=== PATIENT | male | born 1940 | race Caucasian/White ===

== ENCOUNTER → 2018-01-15 | Outpatient (CLI) | payer MEDICARE ==
--- NOTE | 2018-01-15 09:23 | MR ---
MR lumbar spine wo con Other spondylosis, lumbosacral region, back pain Multiplanar, multiecho imaging of the lumbar spine was obtained without contrast on a 3 Anjelica magnet. REFERENCE: Previous study dated 01/10/2015. FINDINGS: Paraspinal soft tissues are normal. There is a moderate levoscoliosis. There is mild wedging of the L2 vertebral body. This is an interva l development but is not acute. This hypertrophic spondylosis anteriorly at L1-2 and L2-3. There is a lso hypertrophic spondylosis present posteriorly at L2-3. Cord signal is maintained. The conus ends normally at the level of superior endplate of L1. At T12-L1, there is minimal capsulitis within the facets. At L1-2, there is disc space loss and disc desiccation. There is a mild, bilobed disc displacement mi ldly deforming the thecal sac. Intervertebral foramina are maintained. There is hypertrophic change a nd capsulitis within the facets. At L2-3, there has been mild, interval wedging of the L2 vertebral body. This hypertrophic spondylosi s both anteriorly and posteriorly. There is bilateral intervertebral foraminal narrowing, worse on th e right left. There is a mixed spondylitic protrusion present posteriorly. This is effacing and mildl y deforming the thecal sac. There is hypertrophic change and capsulitis within the facets. At L3-4, there is disc space loss and disc desiccation. Intervertebral foramina are reasonably well-m aintained. There is a diffuse disc displacement. This hypertrophic change and capsulitis in the facet s. There is mild trefoiling of the thecal sac. At L4-5, there is disc space loss and disc desiccation. There is left-sided intervertebral foraminal narrowing and lateral recess stenosis. This hypertrophic change in the facets. There is mild trefoili ng of the thecal sac. At L5-S1, there is a miniscule central disc protrusion. There is mild, left-sided intervertebral fora ben narrowing. There is moderate facet arthropathy. IMPRESSION: 1. DIFFUSE DEGENERATIVE DISC DISEASE AND FACET ARTHROPATHY. 2. MILD, INTERVAL WEDGING OF THE L2 VERTEBRAL BODY. 3. MULTILEVEL INTERVERTEBRAL FORAMINAL NARROWING. 4. BROAD-BASED MIXED SPONDYLITIC PROTRUSION, L2-3. 5. LEFT-SIDED LATERAL RECESS STENOSIS, L4-5.
== END | disposition home or self-care (01) ==
LOC: RADMRIMAIN 08:33
PROVIDERS: ATTEND Internal Medicine
DX: M48.061 Spinal stenosis, lumbar region without neurogenic claudication (principal); M99.73 Connective tissue and disc stenosis of intervertebral foramina of lumbar region; M51.26 Other intervertebral disc displacement, lumbar region; M51.36 Other intervertebral disc degeneration, lumbar region; M46.86 Other specified inflammatory spondylopathies, lumbar region
CPT/HCPCS: 72148

== ENCOUNTER → 2018-03-03 | Outpatient (CLI) | payer MEDICARE ==
[2018-03-03 10:51] LABS: Appearance,Urine Clear (Clear); Bilirubin,Urine Negative (Negative); Blood,Urine Negative (Negative); Color,Urine Yellow; Glucose,Urine (UA) Negative (Negative); Ketones,Urine Negative (Negative); Leukocyte Esterase,Urine Negative (Negative); Nitrite,Urine Negative (Negative); Protein,Urine Negative (Negative); Specific Gravity,Urine 1.016 (1.001-1.035); Urobilinogen,Urine <2.0 mg/dL (<2.0)
[2018-03-03 10:53] LABS: Basophils % (A) 1 %; Eosinophils # (A) 0.2 k/uL (0-0.7); Eosinophils % (A) 3 %; HCT 41.5 % (39.0-53.0); HGB 14.4 gm/dL (13.0-17.5); Lymphocytes # (A) 1.9 k/uL (1.0-4.8); Lymphocytes % (A) 31 %; MCH 31.5 pg (25.0-35.0); MCHC 34.8 g/dL (31.0-37.0); MCV 90.3 fL (80.0-100.0); Mean Platelet Volume 7.4; Monocytes # (A) 0.5 k/uL (0-1.0); Monocytes % (A) 8 %; Neutrophils # (A) 3.3 k/uL (1.3-7.7); Neutrophils % (A) 54 %; Platelet Count 241 k/uL (150-450); RBC 4.59 m/uL (4.30-5.90); RDW 13.5 % (11.5-15.5); WBC 6.2 k/uL (3.8-10.6)
[2018-03-03 11:05] LABS: Partial Thromboplastin Time 24.1 sec (22.0-30.0); Prothrombin Time 10.2 sec (9.0-12.0)
[2018-03-03 11:12] LABS: Albumin 4.5 g/dL (3.5-5.0); Calcium 9.9 mg/dL (8.4-10.2); Potassium 4.3 mmol/L (3.5-5.1); Total Bilirubin 0.7 mg/dL (0.2-1.3); Total Protein 7.4 g/dL (6.3-8.2)
== END | disposition home or self-care (01) ==
LOC: LABWHC1 09:35
DX: Z01.812 Encounter for preprocedural laboratory examination (principal); M48.061 Spinal stenosis, lumbar region without neurogenic claudication; Z79.01 Long term (current) use of anticoagulants
CPT/HCPCS: 36415; 80053; 81003; 85025; 85610; 85730

== ENCOUNTER → 2018-03-30 | Outpatient (CLI) | payer MEDICARE ==
--- NOTE | 2018-03-30 07:19 | XR ---
EXAMINATION TYPE: XR lumbar spine 2 or 3V DATE OF EXAM: 03/30/2018 COMPARISON: MRI 01/15/2018 HISTORY: 77-year-old male follow-up after laminectomy TECHNIQUE: 3 views FINDINGS: 5 lumbar type vertebral bodies. Lower lumbar laminectomy with placement of posterior fusion device pl aced along the spinous processes and lamina of L4-L5. Hypertrophic facet arthropathy is present throu ghout with moderate multilevel disc/endplate degenerative change. Trace grade 1 retrolisthesis at L4- L5 and L2-L3. Vertebral body heights are maintained. There is scattered calcifications within the abd ominal aorta. IMPRESSION: New surgical hardware along the posterior elements of L4-L5. Stable trace grade 1 retrolisthesis at L 2-L3 and L4-L5. Moderate multilevel disc/endplate degenerative change and hypertrophic facet arthropa thy throughout.
== END | disposition home or self-care (01) ==
LOC: RADXRMAIN 06:48
DX: M43.16 Spondylolisthesis, lumbar region (principal); M47.816 Spondylosis without myelopathy or radiculopathy, lumbar region; M46.96 Unspecified inflammatory spondylopathy, lumbar region; Z98.890 Other specified postprocedural states
CPT/HCPCS: 72100

== ENCOUNTER → 2018-08-12 | Outpatient (CLI) | payer MEDICARE ==
--- NOTE | 2018-08-12 15:44 | US ---
EXAMINATION TYPE: US kidneys/renal and bladder DATE OF EXAM: 08/12/2018 COMPARISON: CT 2013, US 2011 CLINICAL HISTORY: N18.3 CHR KIDNEY DISEASE. CKD stage 3 EXAM MEASUREMENTS: Right Kidney: 10.3 x 5.1 x 4.5 cm Left Kidney: 10.3 x 5.5 x 6.0 cm Right Kidney: multiple cystic areas with largest mid pole measuring 2.2cm Left Kidney: multiple cystic areas with largest inferior pole measuring 2.0cm Bilateral renal cysts are increasing in size from 2012. Bladder: wnl Bilateral Jets seen: yes IMPRESSION: 1. Simple renal cysts.
== END | disposition home or self-care (01) ==
LOC: RADUSWWP 14:29
PROVIDERS: ATTEND Internal Medicine
DX: N28.1 Cyst of kidney, acquired (principal); N18.3 Chronic kidney disease, stage 3 (moderate)
CPT/HCPCS: 76770

== ENCOUNTER 2019-12-19 09:58 | Observation (INO) | payer MEDICARE ==
[2019-12-20 14:07] VITALS: BMI 26.1
[2019-12-21 04:58] VITALS: BP 127/64; PULSE 66; RESP 17; TEMP 98.3
== END 2019-12-21 11:39 | disposition home or self-care (01) ==
LOC: EC 09:58 → 5NMEDONC 12:57 → UNDOADMIN 12:57 → INTOOBSV 12:57 → 5NMEDONC 13:46 → UNDODISIN 12-21 11:39
PROVIDERS: ADMIT Internal Medicine; ATTEND Internal Medicine
DX: N17.9 Acute kidney failure, unspecified (principal); N39.0 Urinary tract infection, site not specified; I48.20 Chronic atrial fibrillation, unspecified; E87.1 Hypo-osmolality and hyponatremia; E87.2 Acidosis; N40.0 Benign prostatic hyperplasia without lower urinary tract symptoms; M10.9 Gout, unspecified; T36.8X5A Adverse effect of other systemic antibiotics, initial encounter; T50.2X5A Adverse effect of carbonic-anhydrase inhibitors, benzothiadiazides and other diuretics, initial encounter; I12.9 Hypertensive chronic kidney disease with stage 1 through stage 4 chronic kidney disease, or unspecified chronic kidney disease; E86.1 Hypovolemia; N18.9 Chronic kidney disease, unspecified; R19.7 Diarrhea, unspecified; G89.29 Other chronic pain; M54.9 Dorsalgia, unspecified; M54.2 Cervicalgia; I44.0 Atrioventricular block, first degree; Z91.013 Allergy to seafood; Z97.0 Presence of artificial eye; Z82.49 Family history of ischemic heart disease and other diseases of the circulatory system; Z87.891 Personal history of nicotine dependence; Z81.8 Family history of other mental and behavioral disorders; Z90.49 Acquired absence of other specified parts of digestive tract; Z90.89 Acquired absence of other organs; Z98.890 Other specified postprocedural states; Z87.442 Personal history of urinary calculi; Z79.899 Other long term (current) drug therapy
CPT/HCPCS: 96361 ×4; 96365; 96372 ×2; 96376; 96374; 99285; 51702; 36415; 93005; 80053; 80048 ×2; 83735; 85025; 81001; 87040; 87086; 76770; G0378 ×3; J1644 ×2; J0696 ×3; 99284

== ENCOUNTER 2021-12-19 10:53 | Emergency (ER) | payer MEDICARE ==
[2021-12-19] MEDS ORDERED: SODIUM CHLORIDE 0.9% 500 ML 500 ML IV STA (11:17)
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
--- NOTE | 2021-12-19 11:42 | XR ---
EXAMINATION TYPE: XR chest 2V DATE OF EXAM: 12/19/2021 COMPARISON: Chest x-ray May 02, 2014 HISTORY: Dysrhythmia. TECHNIQUE: Frontal and lateral views of the chest are obtained. FINDINGS: Improved inspiration current study. There is no suspicious focal air space opacity, pleural effusion, or pneumothorax seen. The cardiac silhouette size is now within normal limits with athero sclerotic change aortic knob redemonstrated. The osseous structures are intact. IMPRESSION: No acute process currently.
[2021-12-19 11:47] LABS: INR 0.9 (<1.2); Partial Thromboplastin Time 24.1 sec (22.0-30.0); Prothrombin Time 10.1 sec (9.0-12.0)
[2021-12-19 11:55] LABS: Basophils # (A) 0.1 k/uL (0-0.2); Basophils % (A) 1 %; Eosinophils # (A) 0.1 k/uL (0-0.7); Eosinophils % (A) 2 %; HCT 46.1 % (39.0-53.0); HGB 15.2 gm/dL (13.0-17.5); Lymphocytes # (A) 1.4 k/uL (1.0-4.8); Lymphocytes % (A) 25 %; MCH 31.7 pg (25.0-35.0); Mean Platelet Volume 7.7; Monocytes # (A) 0.5 k/uL (0-1.0); Monocytes % (A) 8 %; Neutrophils # (A) 3.5 k/uL (1.3-7.7); Neutrophils % (A) 60 %; Platelet Count 182 k/uL (150-450); RDW 13.4 % (11.5-15.5); WBC 5.9 k/uL (3.8-10.6)
[2021-12-19 12:02] LABS: Albumin 4.9 g/dL (3.5-5.0); Calcium 9.7 mg/dL (8.4-10.2); Potassium 4.2 mmol/L (3.5-5.1); Total Bilirubin 0.8 mg/dL (0.2-1.3); Total Protein 8.3 g/dL (6.3-8.2)
[2021-12-19 12:53] VITALS: BP 130/86; PULSE 77; RESP 18; TEMP 97.8
== END 2021-12-19 12:52 | disposition home or self-care (01) ==
LOC: EC 10:53
DX: R00.2 Palpitations (principal); I48.91 Unspecified atrial fibrillation; I10 Essential (primary) hypertension; Z87.891 Personal history of nicotine dependence; Z72.89 Other problems related to lifestyle
CPT/HCPCS: 36415; 71046; 80053; 83735; 84484; 85025; 85610; 85730; 93005; 99285

== ENCOUNTER → 2022-03-16 | Outpatient (CLI) | payer MEDICARE ==
--- NOTE | 2022-03-16 09:08 | XR ---
EXAMINATION TYPE: XR knee limited LT DATE OF EXAM: 03/16/2022 CLINICAL HISTORY: pain TECHNIQUE: Two views of the left knee are obtained. COMPARISON: None. FINDINGS: There is no acute fracture/dislocation. The tri-compartment joint spaces appear within no rmal limits. The overlying soft tissue appears unremarkable. Small subtalar joint effusion. IMPRESSION: There is no acute fracture or dislocation ICD 10 NO FRACTURE, INITIAL EVALUATION
== END | disposition home or self-care (01) ==
LOC: RADXRMAIN 08:19
PROVIDERS: ATTEND Internal Medicine
DX: M25.562 Pain in left knee (principal)

== ENCOUNTER → 2023-12-07 | Outpatient (CLI) | payer MEDICARE ==
--- NOTE | 2023-12-08 22:37 | MR ---
EXAMINATION TYPE: MR lumbar spine wo/w con DATE OF EXAM: 12/07/2023 1:55 PM CLINICAL INDICATION:Male, 83 years old with history of M17.816 spondylosis of lumbar region; PHH, Low back pain into buttocks and left leg COMPARISON: None TECHNIQUE: Multi planar, multi sequence imaging was performed utilizing: T1-weighted, T2-weighted, a nd turbo inversion recovery imaging of the lumbar spine. IV Contrast: 7 cc Gadavist. (None if empty) FINDINGS: Alignment: The lumbar vertebral bodies have preserved heights and alignment. Cord: The conus medullaris and the distal spinal cord appear unremarkable with regards to their signa l intensity and morphology. Bones/Discs: Multilevel disc degeneration changes with osteophyte formation, disc space narrowing, Sc hmorl's nodes, and facet joint arthropathy. Reactive bony edema along the adjoining endplates of L2 o n L3 and L4 and L5 on inversion recovery sequences.. Multilevel disc desiccation is present. There is susceptibility artifact at the posterior elements of L4 and L5 with present. Scattered areas of high T1 signal drops out of signal on fat saturation sequences compatible with focal fatty bone marrow. T12-L1: No evidence of significant spinal canal stenosis or neural foraminal stenosis. L1-L2: Disc bulge and facet joint arthropathy result in mild spinal canal and moderate to severe bila teral neural foraminal stenosis. L2-L3: Disc bulge and facet joint arthropathy result in mild spinal canal and severe right and modera te left neural foraminal stenosis. L3-L4: Disc bulge and facet joint arthropathy result in mild spinal canal and moderate bilateral neur al foraminal stenosis. L4-L5: Disc bulge and facet joint arthropathy result in mild spinal canal and severe left and moderat e right neural foraminal stenosis. L5-S1: The disc is rounded posterior morphology without significant spinal canal stenosis. Facet join t arthropathy with moderate bilateral neural foraminal stenosis. No significant spinal canal or neural foraminal stenosis in the remainder of the visualized levels. Other findings: None. IMPRESSION: 1. No definitive evidence of disc herniation or significant spinal canal stenosis. 2. Moderate to severe disc degeneration with associated osteoarthritic changes. Neural foraminal ally nosis worse at L4-L5 with severe left, L2-L3 with severe right no femoral stenosis.
== END | disposition home or self-care (01) ==
LOC: RADMRIMAIN 12:46
PROVIDERS: ATTEND Internal Medicine
DX: M47.816 Spondylosis without myelopathy or radiculopathy, lumbar region (principal); M51.36 Other intervertebral disc degeneration, lumbar region; M99.73 Connective tissue and disc stenosis of intervertebral foramina of lumbar region
CPT/HCPCS: 72158; A9585

== ENCOUNTER → 2023-12-27 | Outpatient (CLI) | payer MEDICARE ==
[2023-12-27 09:41] VITALS: BP 195/94; PULSE 98; RESP 15; TEMP 98.6
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
== END ==
LOC: PNWHC3 08:27
PROVIDERS: ATTEND Specialist
DX: M51.37 Other intervertebral disc degeneration, lumbosacral region (principal); M19.90 Unspecified osteoarthritis, unspecified site; I48.91 Unspecified atrial fibrillation; I10 Essential (primary) hypertension; N40.0 Benign prostatic hyperplasia without lower urinary tract symptoms; Z87.39 Personal history of other diseases of the musculoskeletal system and connective tissue; Z87.891 Personal history of nicotine dependence; Z79.899 Other long term (current) drug therapy
CPT/HCPCS: 99211

== ENCOUNTER 2024-01-04 09:17 | Day surgery (SDC) | payer MEDICARE ==
[~2024-01-04 09:17] MED LIST: LACTATED RINGERS 1,000 ML IV SCH
[2024-01-04] MEDS ORDERED: methylPREDNISolone ACETATE 40 MG/ML 1 ML VIAL ONE (10:03)
[2024-01-04] MEDS ORDERED: IOPAMIDOL M200 10 ML VIAL ONE (10:03)
[2024-01-04 10:06] VITALS: TEMP 97.5
--- NOTE | 2024-01-04 10:09 | P.PCN ---
Date of Procedure: 01/04/24 Description of Procedure: PREOPERATIVE DIAGNOSIS: lumbar radiculopathy POSTOPERATIVE DIAGNOSIS: Lumbar radiculopathy PROCEDURE 1. Lumbar epidural steroid injection under fluoroscopic guidance at the L5-S1 level. 2. Lumbar epidurogram. Imaging: Fluoroscopy was used, images where saved to the medical record ANESTHESIA: Local only EBL: Minimal PROCEDURE INDICATION: The patient with low back pain and radiculitis symptoms unresponsive to conservative treatment. Fluoroscopy was used to optimize visua lization of the needle placement and to maximize safety. PROCEDURE DESCRIPTION / TECHNIQUE: The patient was seen and identified in the preoperative area. Risks, benefits, complications including but not limited to infections, bleeding, allergic reaction to medications, nerve damage and incomplete pain relief, as well as alternatives to the procedure were discussed with the patient. The patient agreed to proceed with the procedure and signed the consent. IV was started if indicated above, and vital signs were stable. Patient was taken to the OR and time out was completed. The patient was placed in the prone position on procedure table and a pillow was placed under the abdomen to reduce lumbar lordosis. The lumbosacral area was prepped and draped in the usual sterile fashion. Vitals were closely monitored during the procedure. Using anterior-posterior fluoroscopy, the L5-S1 interlaminar space was identified and the skin over this site was marked and then infiltrated with 1% lidocaine subcutaneously. Subsequently, a 20-gauge Tuohy epidural needle was inserted and advanced toward the epidural space using the Loss of resistance technique and guided by AP and lateral fluoroscopy. The correct needle position in the epidural space was verified with the injection of 1 mL of Omnipaque 180 contrast to observe an acceptable epidurogram, after negative aspiration for blood and CSF and in the absence of paresthesias. Again after negative aspiration, a 3 ml mixture containing 40mg of depomedrol and 2 ml of preservative free Normal Saline was injected and a washout of epidurogram was seen. Needle was withdrawn intact, skin was cleansed, and bandages were applied. COMPLICATIONS: None DISPOSITION / PLANS: The patient was placed in a supine position and transferred to the recovery area in a stable condition for observation. There was no evidence of lower extremity motor or sensory deficit after the procedure. Patient was discharged from the recovery room after meeting discharge criteria. Home discharge instructions were given to the patient by the staff. The patient was reexamined prior to discharge. The patient will follow up as directed. Blood pressure is elevated advised to take medications at home as soon as he gets home and to follow-up with his primary care physician
--- NOTE | 2024-01-04 10:19 | FL ---
Fluoroscopy History: LESI 3 sec FL .[id number] DAP dose
[2024-01-04 10:35] VITALS: RESP 18
[2024-01-04 11:05] VITALS: BP 163/84; PULSE 64
== END 2024-01-04 10:32 | disposition home or self-care (01) ==
LOC: ORPAIN 09:17
PROVIDERS: ATTEND Hospitalist
DX: M54.16 Radiculopathy, lumbar region (principal); Z88.8 Allergy status to other drugs, medicaments and biological substances; Z79.899 Other long term (current) drug therapy
CPT/HCPCS: 62323; J1030; Q9966

== ENCOUNTER → 2024-02-10 | Outpatient (CLI) | payer MEDICARE ==
[2024-02-10 09:26] VITALS: BP 183/70; PULSE 58; RESP 16; TEMP 97.5
--- NOTE | 2024-02-10 12:50 | P.PAINPG ---
PQRS Measure Charge Sheet Comment: HISTORY OF PRESENT ILLNESS: A 83 yr old male w at side presents today w severe and chronic LBP x 40 yrs secondary to DDD, spondylosis and facet arthropathy without myelopathy for evaluation s/p YANCY L5-S1 #1. Pt states she experienced 60 % pain relief x 1 wks s/p procedure. Pt states pain level is provoked at 8 /10 in intensity, constant, localized in the lumbar spine, predominantly axial, pinching in character w occasional shooting pain towards the BL knees. Pain is provoked by bending. She cannot attend formal PT sessions due to provocation of intractable pain. Pain is alleviated by physician guided home stretching regimen 4-5 times weekly since Nov 2023, alternating heat & ice, medications, topical, repositioning and rest. Oswestry axial pain score at 33. Interventional procedures include YANCY L5-S1 x1 Medicatins include Tylenol #3 #60, Icy Hot REVIEW OF ORGAN SYSTEMS: CONSTITUTIONAL: No fevers or chills. No recent weight loss. NEUROLOGICAL: + numbness and tingling along the distal extremities. No seizure disorders or headaches. MUSCULOSKELETAL: + pain PSYCHIATRIC: Denies current depression or suicidal thoughts. Physical Examinations : Constitutional : Cooperative , not in acute distress . Neurologic : Cranial nerve II to XII intact. No focal neurological deficits. Psychiatric : alert & oriented x 3. Matching mood & appropriate affect. Judgment & insight intact. Musculoskeletal : Cervical Spine Motor strength in the deltoid and biceps: Normal right side. Normal Left side Motor strength biceps and the wrist extensors: Normal right side . Normal left side Motor strength in the triceps muscle: Normal right side. Normal left side Deep tendon reflexes: Normal at the biceps. Normal at Brachioradialis. Normal at triceps Vertebral body tenderness to deep palpation over Cervical facet loading test: positive bilaterally Spurling test: positive bilaterally Neck distraction test: positive bilaterally Kayode sign: positive bilaterally Lumbar spine Motor strength lower extremities ,thigh and legs 5/5 Right side , 5/5 Left side Deep tendon reflexes : Normal Knee Jerk. Normal Ankle Jerk Vertebral body tenderness Nieves Test positive Lumbar facet Loading Test: positive Right / positive Left L4-L5, L5-S1 Range of motion of the lumbar spine Flexion 30 degrees, extension 10 degrees Straight Leg Raise test: Left/ Right positive at degrees Marisela test: positive right / positive left. Severe tenderness over the Sacroiliac joint on the Right / Left sides Leon test: positive bilaterally Seated flexion test: positive bilaterally. Sacral spine : Severe tenderness over the Sacroiliac joint: right side / left side Range of motion: Flexion of the lumbar spine <60 degrees Range of motion: Extension of the lumbar spine <20 degrees Gaenslen's Test positive Marisela test: positive right side / left side Thigh Thrust Test Sacral Thrust Test Imaging: MRI with/ without contrast of the lumbar spine from 12/07/23 reviewed Assessment/ Plan : Lumbar DDD Recommendation of BL MBB L4-L5, l5-S1 #1. May need a series of injections, up until RFA, for optimal pain relief. Risks, benefits of procedure discussed and patient verbalized understanding. Admits to anti- coagulant use or medical history of diabetes. Protocol for discontinuation/ continuation of medications naga procedure discussed. Pt acknowledged understanding. Elevated BP. Urged pt to go downstairs to manage BP in ER short stay. Dangers of elevated BP discussed and pt verbalized understanding. All questions answered. I have spent greater than 30 minutes on patient care today. Dr Patel was available by phone for the evaluation of this patient. The time was used to review the medical records including relevant urine studies and Prescription history (MAPs), review of the available imaging, evaluation and examination of the patient, coordination of care with the medical staff and if applicable referring physicians, as well as creation of the medical record PQRS Narrative: Smoking Status Former smoker Hx Alcohol Use (MH) No Home Medications: Ambulatory Orders amLODIPine BESYLATE [Norvasc] 10 mg PO DAILY 04/30/14 Fish Oil/Dha/Epa [Fish Oil 1,200 mg Fish Oil] 3 cap PO DAILY 02/17/16 Propafenone [Rythmol] 150 mg PO BID@0800,1700 08/27/16 Latanoprost [Xalatan 0.005%] 1 drop LEFT EYE HS 12/19/19 Metoprolol Succinate (ER) [Toprol XL] 50 mg PO DAILY@1700 12/19/19 Baclofen [Lioresal] 10 mg PO BID PRN 12/19/21 Cholecalciferol [Vitamin D3 (125 Mcg = 5000 Iu)] 125 mcg PO DAILY 12/19/21 Losartan Potassium 100 mg PO DAILY 12/19/21 Acetaminophen-Codeine 300-30mg [Tylenol w/codeine #3] 1 tab PO BID PRN 30 Days #60 tablet 12/29/23 Controlled Substance Measures - Controlled Substance Measures Is patient prescribed a controlled substance at discharge?: No
== END ==
LOC: PNWHC3 08:42
PROVIDERS: ATTEND Specialist
DX: M51.37 Other intervertebral disc degeneration, lumbosacral region (principal); Z87.891 Personal history of nicotine dependence
CPT/HCPCS: 99211

== ENCOUNTER 2024-02-25 06:38 | Day surgery (SDC) | payer MEDICARE ==
[2024-02-25 07:11] VITALS: TEMP 98
[2024-02-25] MEDS: LACTATED RINGERS 1,000 ML IV SCH (07:25)
[2024-02-25] MEDS ORDERED: MIDAZOLAM 2 MG/2 ML VIAL ONE (08:07)
[2024-02-25] MEDS ORDERED: ROPIVACAINE 5MG/ML 20ML VIAL ONE (08:07)
[2024-02-25] MEDS ORDERED: fentaNYL (PF) 50 MCG/ML 2 ML AMP ONE (08:07)
[2024-02-25] MEDS: LACTATED RINGERS 1,000 ML IV ONE (08:36)
--- NOTE | 2024-02-25 08:43 | P.PCN ---
Description of Procedure: Preprocedure diagnosis. 1. Lumbar spondylosis with facet joint arthropathy without myelopathy. 2. Lumbar degenerative disc disease. Postprocedure diagnosis. As above. Procedure done. Bilateral diagnostic block with local anesthetics at L3, L4, L5 medial branch to target the facet joint L4- 5 and L5-S1 with fluoroscopic guidan ce (fluoroscopy images are available in the radiology department) . Anesthesia. As per anesthesia department/ Moderate sedation with intravenous Versed 2 mg and fentanyl and local infiltration with local anesthetics. In OR, continuous pulse ox, EKG, blood pressure and verbal communication was maintained. Blood loss. Minimal. Indication. The patient has low back pain secondary to lumbar facet joint arthropathy. Discussed the procedure and alternative and complications which includes infection, bleeding, nerve damage, paralysis ,aggravation of pain. Patient understands and all questions were answered. Patient iunderstands that if any pain relief occurs it will last for a few hours to a few days maximum. Procedure description. After getting consent patient was taken in the OR in pr one position. Back prepped with chlorhexidine and draped in sterile fashion. After injecting 5 mL of plain 1% lidocaine subcutaneously, a 22-gauge spinal needle was introduced under tunnel vision of the fluoroscope at the junction of the superior articular process with RIGHT ala of the sacrum. With slight oblique fluoroscope, after injecting 5 mL of plain 1% lidocaine subcutaneously, a 22-gauge spinal needle was introduced under tunnel vision of the fluoroscope at the junction of the superior articular process with RIGHT L5 transverse process, junction of the superior articular process with the RIGHT L4 transverse process. Negative CSF, negative blood, negative paresthesia. After needle position confirmation by AP and crosstable lateral view, after negative aspiration, half milliliters of solution were injected at each point. Total 1- 1/2 mL of solution was injected on the right side which consists of 0.5% ropivacaine. In exactly same way, LEFT sided injections were done at the [facility] 3 points. Junction of the superior articular process with left ala of the sacrum, junction of the superior articular process with the left L5 transverse process, junction of the superior articular process with left L4 transverse process using 0.5 mL of solution at each point. Total 1-1/2 mL of solution was injected on the left side which consists of 0.5% ropivacaine . Spinal needles were taken out and bandages were applied. Disposition. Patient tolerated the procedure well. No complication. Discharged home in stable condition
[2024-02-25 09:04] VITALS: BP 142/77; PULSE 53; RESP 19
--- NOTE | 2024-02-25 16:42 | FL ---
Fluoroscopy INDICATION: Pain FINDINGS: Fluoroscopy time: 59.2 seconds. Total dose area product (DAP) in uGy*m?, mGy*cm? (or similar): 0.27127 Images obtained: 5. IMPRESSION: 1. Documentation of fluoroscopy.
== END 2024-02-25 09:07 | disposition home or self-care (01) ==
LOC: ORPAIN 06:38
PROVIDERS: ATTEND Pain Medicine Interventional Pain Medicine
DX: M47.816 Spondylosis without myelopathy or radiculopathy, lumbar region (principal); M51.36 Other intervertebral disc degeneration, lumbar region; I10 Essential (primary) hypertension; I48.91 Unspecified atrial fibrillation; M10.9 Gout, unspecified; N40.0 Benign prostatic hyperplasia without lower urinary tract symptoms; Z79.899 Other long term (current) drug therapy
CPT/HCPCS: 64493; 64494 ×2; J2250; J3010; J2795

== ENCOUNTER → 2024-03-15 | Outpatient (CLI) | payer MEDICARE ==
[2024-03-15 10:33] VITALS: BP 177/81; PULSE 70; RESP 16; TEMP 97.7
--- NOTE | 2024-03-15 14:53 | P.PAINPG ---
PQRS Measure Charge Sheet Comment: HISTORY OF PRESENT ILLNESS: A 83 yr old male w at side presents today w severe and chronic LBP x 40 yrs secondary to DDD, spondylosis and facet arthropathy without myelopathy for evaluation s/p BL MBB L3-L5 #1. Pt states she experienced 80 % pain relief x 1 days s/p procedure. Pt states pain level is provoked at 6 /10 in intensity, constant, localized in the lumbar spine, predominantly axial, pinching in character w occasional shooting pain towards the BL knees. Pain is provoked by bending. She cannot attend formal PT sessions due to provocation of intractable pain. Pain is alleviated by physician guided home stretching regimen 4-5 times weekly since Nov 2023, alternating heat & ice, medications, topical, repositioning and rest. Oswestry axial pain score at 32. Interventional procedures include YANCY L5-S1 x1, BL MBB L3-L5 x1 Medicatins include Tylenol #3 #60, Icy Hot REVIEW OF ORGAN SYSTEMS: CONSTITUTIONAL: No fevers or chills. No recent weight loss. NEUROLOGICAL: + numbness and tingling along the distal extremities. No seizure disorders or headaches. MUSCULOSKELETAL: + pain PSYCHIATRIC: Denies current depression or suicidal thoughts. Physical Examinations : Constitutional : Cooperative , not in acute distress . Neurologic : Cranial nerve II to XII intact. No focal neurological deficits. Psychiatric : alert & oriented x 3. Matching mood & appropriate affect. Judgment & insight intact. Musculoskeletal : Cervical Spine Motor strength in the deltoid and biceps: Normal right side. Normal Left side Motor strength biceps and the wrist extensors: Normal right side . Normal left side Motor strength in the triceps muscle: Normal right side. Normal left side Deep tendon reflexes: Normal at the biceps. Normal at Brachioradialis. Normal at triceps Vertebral body tenderness to deep palpation over Cervical facet loading test: positive bilaterally Spurling test: positive bilaterally Neck distraction test: positive bilaterally Kayode sign: positive bilaterally Lumbar spine Motor strength lower extremities ,thigh and legs 5/5 Right side , 5/5 Left side Deep tendon reflexes : Normal Knee Jerk. Normal Ankle Jerk Vertebral body tenderness Nieves Test positive Lumbar facet Loading Test: positive Right / positive Left L4-L5, L5-S1 Range of motion of the lumbar spine Flexion 30 degrees, extension 10 degrees Straight Leg Raise test: Left/ Right positive at degrees Marisela test: positive right / positive left. Severe tenderness over the Sacroiliac joint on the Right / Left sides Gaenslen test: positive bilaterally Seated flexion test: positive bilaterally. Sacral spine : Severe tenderness over the Sacroiliac joint: right side / left side Range of motion: Flexion of the lumbar spine <60 degrees Range of motion: Extension of the lumbar spine <20 degrees Gaenslen's Test positive Marisela test: positive right side / left side Thigh Thrust Test Sacral Thrust Test Imaging: MRI with/ without contrast of the lumbar spine from 12/07/23 reviewed Assessment/ Plan : Lumbar DDD Recommendation of BL MBB L4-L5, L5-S1 #2. May need a series of injections, up until RFA, for optimal pain relief. Risks, benefits of procedure discussed and patient verbalized understanding. Admits to anti- coagulant use or medical history of diabetes. Protocol for discontinuation/ continuation of medications naga procedure discussed. Minimal anesthesia including Fentanyl and Versed if clinically indicated. Pt acknowledged understanding. All questions answered. I have spent greater than 30 minutes on patient care today. Dr Patel was available by phone for the evaluation of this patient. The time was used to review the medical records including relevant urine studies and Prescription history (MAPs), review of the available imaging, evaluation and examination of the patient, coordination of care with the medical staff and if applicable referring physicians, as well as creation of the medical record - Pain Location Bilateral Lower Back Non-Pharmacological Interventions: Chiropractic Treatment, Heat, Sitting Pharmacological Interventions: Block, Epidural, PRN Medication, Topical Medication PQRS Narrative: Smoking Status Former smoker Hx Alcohol Use (MH) No Home Medications: Ambulatory Orders amLODIPine BESYLATE [Norvasc] 10 mg PO DAILY 04/30/14 Fish Oil/Dha/Epa [Fish Oil 1,200 mg Fish Oil] 3 cap PO DAILY 02/17/16 Propafenone [Rythmol] 150 mg PO BID@0800,1700 08/27/16 Latanoprost [Xalatan 0.005%] 1 drop LEFT EYE HS 12/19/19 Metoprolol Succinate (ER) [Toprol XL] 50 mg PO DAILY@1700 12/19/19 Cholecalciferol [Vitamin D3 (125 Mcg = 5000 Iu)] 125 mcg PO DAILY 12/19/21 Losartan Potassium 100 mg PO DAILY 12/19/21 Controlled Substance Measures - Controlled Substance Measures Is patient prescribed a controlled substance at discharge?: No
== END ==
LOC: PNWHC3 09:36
PROVIDERS: ATTEND Specialist
DX: M51.36 Other intervertebral disc degeneration, lumbar region (principal); Z87.891 Personal history of nicotine dependence
CPT/HCPCS: 99211

== ENCOUNTER 2024-04-07 07:34 | Day surgery (SDC) | payer MEDICARE ==
[2024-04-06 09:07] VITALS: BMI 26.9
[2024-04-07 08:21] VITALS: RESP 16; TEMP 96.8
[2024-04-07] MEDS ORDERED: ROPIVACAINE 5MG/ML 20ML VIAL ONE (08:43)
--- NOTE | 2024-04-07 09:00 | P.PCN ---
Date of Procedure: 04/07/24 Surgeon: Hua Buckner Pathology: none sent Condition: stable Disposition: PACU Description of Procedure: PREOPERATIVE DIAGNOSIS : 1- Lumbar spondylosis with Facet Arthropathy without myelopathy . 2- Lumber degenerative disc disease POSTOPERATIVE DIAGNOSIS: 1- Lumbar spondylosis with Facet Arthropathy without myelopathy . 2- Lumber degenerative disc disease PROCEDURE: Diagnostic bilateral L4 -5 , and L5-S1 medial branch block under fluoroscopy Physician: Hua Buckner MD ANESTHESIA: Local only with 1% lidocaine EBL: Negligible COMPLICATION: None. PROCEDURE INDICATION: Chronic low back pain secondary to Facet arthropathy unresponsive to conservative treatment. PROCEDURE DESCRIPTION: the patient was seen and identified in the preop holding area , risks and benefits and possible complications of the procedure and alternatives were discussed with the patient, and the patient agreed to proceed with the procedure and signed the consent. IV was started and vital signs monitored during the procedure and fluoroscopy was used to maximize the benefit and accuracy of the needle placement, sedation was given to decrease patient anxiety, patient was taken to the procedure room and placed in prone position vital signs monitored. The patient was brought into the procedure room and placed in prone position. Skin was prepped with Chloraprep and draped in a sterile manner. Lidocaine 1% was used to numb the skin up at the target points that were chosen as follows: at the L5-S1 level which corresponds to the dorsal ramus of L5 the target points were at the superior medial aspect of the sacral ala on each side of the spine on the AP view of fluoroscopy, and for the L3 and L4 medial branches the target points were the connection between the transverse process and the superior articular process of L4 and L5 respectively on the oblique views of fluoroscopy. I used 22-gauge 3-1/2 inch Quincke spinal needles for this procedure and after contacting bone at the target points mentioned above I injected 1 mL of Ropivacaine 0.5% PF in each needle . Patient tolerated procedure well. At the end of the procedure the needles removed and a bandage applied after the skin was cleaned the cleaning solution. patient was then taken to the recovery room in stable condition and monitored in the recovery room for 20-30 minutes and discharged home in stable condition after discharge criteria met . A copy of the needle placement picture was saved to the C-arm machine.
[2024-04-07 09:57] VITALS: BP 157/67; PULSE 61
--- NOTE | 2024-04-07 10:55 | FL ---
EXAMINATION TYPE: FL guided pain mgmt statistic Intraoperative/procedural fluoroscopic services were provided. Total fluoroscopy time is 7.8 seconds with a total of 5 submitted images to PACS. Please se e the operative/procedural note for further details. DAP: [id number] mGym2
== END 2024-04-07 09:28 | disposition home or self-care (01) ==
LOC: ORPAIN 07:34
PROVIDERS: ATTEND Anesthesiology
DX: M51.36 Other intervertebral disc degeneration, lumbar region (principal); M47.816 Spondylosis without myelopathy or radiculopathy, lumbar region; G89.29 Other chronic pain
CPT/HCPCS: 64493; 64494 ×2; J2795

== ENCOUNTER → 2024-05-03 | Outpatient (CLI) | payer MEDICARE ==
[2024-05-03 11:42] VITALS: BP 182/81; PULSE 67; RESP 16
--- NOTE | 2024-05-03 15:12 | P.PAINPG ---
PQRS Measure Charge Sheet Comment: HISTORY OF PRESENT ILLNESS: A 83 yr old male w at side presents today w severe and chronic LBP x 40 yrs secondary to DDD, spondylosis and facet arthropathy without myelopathy for evaluation s/p BL MBB L3-L5 #2. Pt states he experienced 40 % pain relief s/p procedure. Pt states pain level is provoked at 9 /10 in intensity, constant, localized in the lumbar spine, predominantly axial, pinching in character w occasional shooting pain towards the BL knees. Pain is provoked by bending. She cannot attend formal PT sessions due to provocation of intractable pain. Pain is alleviated by physician guided home stretching regimen 4-5 times weekly since Nov 2023, alternating heat & ice, medications, topical, repositioning and rest. Oswestry axial pain score at 32. Interventional procedures include YANCY L5-S1 x1, BL MBB L3-L5 x2 Medicatins include Tylenol #3 #60, Icy Hot REVIEW OF ORGAN SYSTEMS: CONSTITUTIONAL: No fevers or chills. No recent weight loss. NEUROLOGICAL: + numbness and tingling along the distal extremities. No seizure disorders or headaches. MUSCULOSKELETAL: + pain PSYCHIATRIC: Denies current depression or suicidal thoughts. Physical Examinations : Constitutional : Cooperative , not in acute distress . Neurologic : Cranial nerve II to XII intact. No focal neurological deficits. Psychiatric : alert & oriented x 3. Matching mood & appropriate affect. Judgment & insight intact. Musculoskeletal : Cervical Spine Motor strength in the deltoid and biceps: Normal right side. Normal Left side Motor strength biceps and the wrist extensors: Normal right side . Normal left side Motor strength in the triceps muscle: Normal right side. Normal left side Deep tendon reflexes: Normal at the biceps. Normal at Brachioradialis. Normal at triceps Vertebral body tenderness to deep palpation over Cervical facet loading test: positive bilaterally Spurling test: positive bilaterally Neck distraction test: positive bilaterally Kayode sign: positive bilaterally Lumbar spine Motor strength lower extremities ,thigh and legs 5/5 Right side , 5/5 Left side Deep tendon reflexes : Normal Knee Jerk. Normal Ankle Jerk Vertebral body tenderness Nieves Test positive Lumbar facet Loading Test: positive Right / positive Left L4-L5, L5-S1 Range of motion of the lumbar spine Flexion 30 degrees, extension 10 degrees Straight Leg Raise test: Left/ Right positive at degrees Marisela test: positive right / positive left. Severe tenderness over the Sacroiliac joint on the Right / Left sides Gaenslen test: positive bilaterally Seated flexion test: positive bilaterally. Sacral spine : Severe tenderness over the Sacroiliac joint: right side / left side Range of motion: Flexion of the lumbar spine <60 degrees Range of motion: Extension of the lumbar spine <20 degrees Gaenslen's Test positive Marisela test: positive right side / left side Thigh Thrust Test Sacral Thrust Test Imaging: MRI with/ without contrast of the lumbar spine from 12/07/23 reviewed Assessment/ Plan : Lumbar DDD Pain is managed w OTC Tyl at this time. Will follow up on an as needed basis. All questions answered. I have spent greater than 30 minutes on patient care today. Dr Patel was available by phone for the evaluation of this patient. The time was used to review the medical records including relevant urine studies and Prescription history (MAPs), review of the available imaging, evaluation and examination of the patient, coordination of care with the medical staff and if applicable referring physicians, as well as creation of the medical record PQRS Narrative: Smoking Status Former smoker Hx Alcohol Use (MH) No Home Medications: Ambulatory Orders amLODIPine BESYLATE [Norvasc] 10 mg PO DAILY 04/30/14 Fish Oil/Dha/Epa [Fish Oil 1,200 mg Fish Oil] 3 cap PO DAILY 02/17/16 Propafenone [Rythmol] 150 mg PO BID@0800,1700 08/27/16 Latanoprost [Xalatan 0.005%] 1 drop LEFT EYE HS 12/19/19 Metoprolol Succinate (ER) [Toprol XL] 50 mg PO DAILY@1700 12/19/19 Cholecalciferol [Vitamin D3 (125 Mcg = 5000 Iu)] 125 mcg PO DAILY 12/19/21 Losartan Potassium 100 mg PO DAILY 12/19/21 allopurinoL 100 mg PO DAILY 04/07/24 Controlled Substance Measures - Controlled Substance Measures Is patient prescribed a controlled substance at discharge?: No
== END ==
LOC: PNWHC3 07:39
PROVIDERS: ATTEND Specialist
DX: M51.37 Other intervertebral disc degeneration, lumbosacral region (principal); M47.817 Spondylosis without myelopathy or radiculopathy, lumbosacral region; Z87.891 Personal history of nicotine dependence
CPT/HCPCS: 99211